=== PATIENT | female | born 1985 | race Caucasian/White ===

== ENCOUNTER 2020-02-03 22:18 | Emergency (ER) | payer BC, MEDICAID ==
[2020-02-03] MEDS ORDERED: Take Home: Sulfamethoxazole/Trimethoprim 800-160 MG Tab, 2 Tab Pack PO ONE (22:52)
[2020-02-03] MEDS ORDERED: Take Home: Cephalexin 500 MG Cap, 4 Cap Pack PO ONE (22:54)
--- NOTE | 2020-02-04 06:39 | EDM.PDOC ---
ED HPI GENERAL MEDICAL PROBLEM - General Chief Complaint: Fever Stated Complaint: Mastitis to left breast Time Seen by Provider: 02/03/20 22:45 Source of Information: Reports: Patient History Limitations: Reports: No Limitations - History of Present Illness INITIAL COMMENTS - FREE TEXT/NARRATIVE: Pt. presents to ER with complaints of pain and redness to L breast. Pt. states that she has been experiencing this for the past 24 hours. She states that she has been running a low grade fever. Denies nausea or vomiting. No chest pain or shortness of breath. She is currently . This child was born in [birth year]. Onset: Today Onset Date: 02/03/20 Location: Reports: Chest Quality: Reports: Burning Treatments HOME STAGING SPECIALIST: Reports: Other (see below) Other Treatments HOME STAGING SPECIALIST: Ibuprofen left breast Pain Score (Numeric/FACES): 8 - Related Data Allergies Allergy/AdvReac Type Severity Reaction Status Date / Time Sulfa (Sulfonamide Allergy Other Verified 02/03/20 23:06 Antibiotics) Home Meds: Home Meds FLUoxetine HCl [Fluoxetine HCl] 20 mg PO DAILY 02/03/20 [History] FLUoxetine HCl [Fluoxetine HCl] 40 mg PO DAILY 02/03/20 [History] Past Medical History [employer] History: Reports: Other [employer] History: Mastitis Psychiatric History: Reports: Depression Social & Family History - Family History Cardiac: Reports: Other (See Below) - Tobacco Use Smoking Status *Q: Unknown Ever Smoked ED ROS GENERAL - Review of Systems Review Of Systems: See Below Constitutional: Reports: No Symptoms HEENT: Reports: No Symptoms Respiratory: Reports: No Symptoms Cardiovascular: Reports: No Symptoms Endocrine: Reports: No Symptoms GI/Abdominal: Reports: No Symptoms : Reports: No Symptoms Musculoskeletal: Reports: No Symptoms Skin: Reports: Other (L breast redness/pain) Neurological: Reports: No Symptoms Psychiatric: Reports: No Symptoms Hematologic/Lymphatic: Reports: No Symptoms Immunologic: Reports: No Symptoms ED EXAM, GENERAL - Physical Exam Exam: See Below Exam Limited By: No Limitations General Appearance: Alert, WD/WN, No Apparent Distress Throat/Mouth: Normal Inspection, Normal Lips, Normal Teeth, Normal Gums, Normal Oropharynx, Normal Voice, No Airway Compromise Head: Atraumatic, Normocephalic Neck: Normal Inspection, Supple, Non-Tender, Full Range of Motion Respiratory/Chest: No Respiratory Distress, Lungs Clear, Normal Breath Sounds, No Accessory Muscle Use, Chest Non-Tender Cardiovascular: Normal Peripheral Pulses, Regular Rate, Rhythm, No Edema, No Gallop, No JVD, No Murmur, No Rub Peripheral Pulses: 4+: Radial (L) GI/Abdominal: Soft, Non-Tender, No Mass (Female) Exam: Deferred Back Exam: Normal Inspection, Full Range of Motion Course - Vital Signs Last Recorded V/S: Last Vital Signs Temp 38.8 C H 02/03/20 22:18 Pulse 100 02/03/20 22:18 Resp 20 02/03/20 22:18 BP 125/78 02/03/20 22:18 Pulse Ox - Orders/Labs/Meds Meds: Medications Discontinued Medications Generic Name Dose Route Start Last Admin Trade Name Mindi PRN Reason Stop Dose Admin Cephalexin 1 packet 02/03/20 22:54 02/03/20 23:05 Take Home: Cephalexin 500 Mg, 4 Cap Pack PO 02/03/20 22:55 1 packet ONETIME ONE Administration Trimethoprim/Sulfamethoxazole 1 packet 02/03/20 22:52 Take Home: Sulfameth/Trimet 800-160mg, 2 Pack PO 02/03/20 22:53 ONETIME ONE Departure - Departure Time of Disposition: 23:00 Disposition: Home, Self-Care 01 Clinical Impression: Mastitis - Discharge Information Instructions: and Mastitis, Cephalexin tablets or capsules, Probiotics Referrals: Giovanny Louise MD [Primary Care Provider] - Forms: ED Department Discharge Additional Instructions: Keflex 500mg 4 times per day. Make sure you are emptying the entire breast. I advise you to have the ultrasound performed that Dr. Louise ordered. Recheck in clinic in 10-14 days, sooner if not gradually improving. Tylenol and ibuprofen as needed for discomfort Cold compresses as needed for discomfort Sepsis Event Note (ED) - Evaluation Sepsis Screening Result: Sepsis Risk - Focused Exam Vital Signs: Vital Signs Temp Pulse Resp BP 02/03/20 22:18 38.8 C H 100 20 125/78 - Assessment/Plan Plan: Keflex 500mg 4 times per day. Make sure you are emptying the entire breast. I advise you to have the ultrasound performed that Dr. Louise ordered. Recheck in clinic in 10-14 days, sooner if not gradually improving. Tylenol and ibuprofen as needed for discomfort Cold compresses as needed for discomfort
== END 2020-02-03 23:13 | disposition home or self-care (01) ==
LOC: VM.ED 22:18
DX: N61.0 Mastitis without abscess (principal); F32.9 Major depressive disorder, single episode, unspecified; Z79.899 Other long term (current) drug therapy; Z88.2 Allergy status to sulfonamides
CPT/HCPCS: 99283; A9270-GY

== ENCOUNTER 2021-09-02 20:50 | Emergency (ER) | payer BC, MEDICAID ==
[2021-09-02] MEDS ORDERED: Ketorolac 15 MG/ML SDV IVPUSH ONE (21:09)
[2021-09-02] MEDS ORDERED: Sodium Chloride 0.9% 10 ML Syringe FLUSH PRN (21:09)
[2021-09-02] MEDS ORDERED: Sodium Chloride 0.9% 1,000 ML IV ONE (21:09)
[2021-09-02 21:50] LABS: CHLORIDE,CL 101 mmol/L (98-107); SODIUM,NA 141 mmol/L (136-145)
[2021-09-02 21:51] LABS: ANION GAP 14.5 mmol/L (5-15)
[2021-09-02 22:07] LABS: CORONAVIRUS COVID-19 NAA NEGATIVE (NEGATIVE); RESPIRATORY SYNCYTIAL VIR NAA NEGATIVE (NEGATIVE)
[2021-09-02] MEDS ORDERED: Iopamidol 612 MG/ML 100 ML Bottle IVPUSH ONE (22:52)
== END 2021-09-02 23:36 | disposition home or self-care (01) ==
LOC: VM.ED 20:50
DX: R10.13 Epigastric pain (principal); R79.89 Other specified abnormal findings of blood chemistry; Z88.2 Allergy status to sulfonamides; Z20.822 Contact with and (suspected) exposure to COVID-19
CPT/HCPCS: 0241U; 74177; 80053; 83605; 83690; 85025; 86140; 96374; 99284; J1885; J7030; Q9967

== ENCOUNTER 2022-03-08 10:28 | Emergency (ER) | payer MEDICAID ==
[2022-03-08 10:54] VITALS: BP 135/91; PULSE 83
== END 2022-03-08 11:24 | disposition home or self-care (01) ==
LOC: VM.ED 10:28
DX: L03.031 Cellulitis of right toe (principal); Z88.2 Allergy status to sulfonamides
CPT/HCPCS: 99283